=== PATIENT | female | born 1930 | race Asian ===

== ENCOUNTER 2018-01-15 12:34 | Emergency (ER) | payer OTHER, MEDICAID ==
[~2018-01-15] VITALS: Ht 160 cm; Wt 49.9 kg
[~2018-01-15 12:34] MED LIST: ACET-2619 PO; ACET-8386 PO; ASPI81CT89 PO; ATI.5 PO; ATOR10TA PO; BENA10TA25 PO; BISA10SU1 RC; DIVA125E3 PO; DOCU250S72 PO; FLUT1DSK2 IH; MAA30 PO; MAGN400S60 PO; METO-50 PO; MULT-2410 PO; PRON INH; RISP0.251 PO; TIOT18CA2 IH; VENL37.55 PO; VITB12 PO; ZOLP5TAB1 PO; [UNRECOGNIZED DRUG - CODE] PO
--- NOTE | 2018-01-15 12:34 | NUR ---
PT BIBA BLS TO BED 5
[2018-01-15 12:36] VITALS: BP 158/71
--- NOTE | 2018-01-15 12:45 | NUR ---
PATIENT HERMELINDA from [facility] as directed by pt pmd c/o right rib pain x this am--no obvious or apparent injury/trauma full clear speech. DENIES N/V/D; SKIN IS PINK/WARM/DRY; AAOX4;HR EVEN AND REGULAR; PT DENIES ANY FEVER, CP, SOB, OR COUGH AT THIS TIME; PATIENT STATES PAIN OF 6/10 AT THIS TIME; VSS; PATIENT POSITIONED FOR COMFORT; HOB ELEVATED; BEDRAILS UP X2; BED DOWN. ER MD MADE AWARE OF PT STATUS.
[2018-01-15] MEDS ORDERED: FLUT1POW3 IH (12:59)
[2018-01-15] MEDS ORDERED: METO25TA PO (12:59)
[2018-01-15] MEDS ORDERED: VENL37.55 PO (12:59)
[2018-01-15] MEDS ORDERED: DEPSPR125 PO (12:59)
[2018-01-15] MEDS ORDERED: NACL 0.9% 1,000 ML IV ONE (13:05)
[2018-01-15 13:43] LABS: BASOPHILS % (AUTO) 0.4 % (0.0-2.0); EOSINOPHILS # (AUTO) 0.1 K/uL (0-0.4); EOSINOPHILS % (AUTO) 1.1 % (0.0-4.0); HEMATOCRIT 33.4 % (36-48); LYMPHOCYTES # (AUTO) 2.5 K/uL (2.5-16.5); LYMPHOCYTES % (AUTO) 35.7 % (20.5-51.1); MEAN CORPUSCULAR HEMOGLOBIN 29 pg (27-31); MEAN CORPUSCULAR HGB CONC 33 g/dL (33-37); MEAN CORPUSCULAR VOLUME 86.6 fL (80-94); MONOCYTES # (AUTO) 0.4 K/uL (0.8-1.0); MONOCYTES % (AUTO) 6.1 % (1.7-9.3); NEUTROPHILS % (AUTO) 56.7 % (42.2-75.2); PLATELET COUNT (AUTO) 117 K/uL (140-450); RED BLOOD CELL COUNT(AUTO) 3.86 MIL/uL (4.20-5.40); RED CELL DISTRIBUTION WIDTH 14.6 % (11.6-13.7)
[2018-01-15 13:59] LABS: APPEARANCE,URINE CLEAR (CLEAR); BILIRUBIN,URINE NEGATIVE (NEGATIVE); BLOOD, URINE 3+ (NEGATIVE); COLOR,URINE YELLOW (YELLOW); LEUKOCYTE ESTERASE ,URINE NEGATIVE (NEGATIVE); NITRITE, URINE NEGATIVE (NEGATIVE); UGLUCOSE NEGATIVE (NEGATIVE)
[2018-01-15 14:10] LABS: ALBUMIN 2.8 g/dL (3.4-5.0); ANION GAP 10.5 (8-16); ASPARTATE AMINOTRANSFERASE 15 U/L (15-37); CARBON DIOXIDE 27.8 mmol/L (21-32); CHLORIDE 108 mmol/L (98-107); GLUCOSE 81 mg/dL (74-106); POTASSIUM 4.3 mmol/L (3.5-5.1); SODIUM SERUM 142 mmol/L (136-145); TOTAL BILIRUBIN 0.2 mg/dL (0.0-1.0); UREA NITROGEN, BLOOD 31 mg/dL (7-18)
[2018-01-15 14:24] LABS: RBC,URINE 11-20 (MOD) /HPF (0-5); WBC,URINE 0-5 (RARE) /HPF (0-5)
[2018-01-15 14:36] LABS: PROTHROMBIN TIME 9.7 secs (10.8-13.4)
--- NOTE | 2018-01-15 14:49 | NUR ---
PT TAKEN TO CT IN [place]
--- NOTE | 2018-01-15 16:00 | NUR ---
Patient appears to be resting comfortably in bed. Vital Signs within normal limits. Respirations even and unlabored.
--- NOTE | 2018-01-15 17:00 | NUR ---
PATIENT AWAITING TRANSPORTATION FOR DISCHARGE.
--- NOTE | 2018-01-15 17:45 | NUR ---
Muna sherman in [facility] - 01/15/18 at 1759 by GUIDO RESIEVED CALL FROM FACILITY AND WAS TOLD PATIENTS DAUGHTER WILL BE PICKING HER UP IN ABOUT 90MIN.
--- NOTE | 2018-01-15 17:45 | NUR ---
RECIEVED CALL FROM FACILITY AND WAS TOLD PATIENTS DAUGHTER WILL BE PICKING HER UP IN ABOUT 90MIN.
[2018-01-15 18:45] VITALS: BP 112/69
--- NOTE | 2018-01-15 18:45 | NUR ---
Patient discharged with v/s stable. Written and verbal after care instructions given and explained. Patient verbalized understanding. Ambulatory with steady gait. All questions addressed prior to discharge. Advised to follow up with PMD.
== END 2018-01-15 18:45 | disposition home or self-care (01) ==
LOC: MED 12:34
DX: S20.211A Contusion of right front wall of thorax, initial encounter (principal); X58.XXXA Exposure to other specified factors, initial encounter; Y93.89 Activity, other specified; Y99.8 Other external cause status; Y92.89 Other specified places as the place of occurrence of the external cause; J44.9 Chronic obstructive pulmonary disease, unspecified; I10 Essential (primary) hypertension; Z79.899 Other long term (current) drug therapy
CPT/HCPCS: 36415; 71250; 80053; 81001; 83605; 84484; 85025; 85610; 85730; 87040; 87086; 93005; 99285; J7030